=== PATIENT | female | born 1970 | race Caucasian/White ===

== ENCOUNTER 2023-03-06 07:25 | Outpatient (RCR) | payer BC, SELFPAY | END 2023-03-06 23:59 | disposition home or self-care (01) | LOC: RPT 07:25 | PROVIDERS: ATTENDING PHYSICIAN Radiology Radiation Oncology; FAMILY PHYSICIAN Internal Medicine | DX: I97.2 Postmastectomy lymphedema syndrome (principal); C50.412 Malignant neoplasm of upper-outer quadrant of left female breast; Z17.1 Estrogen receptor negative status [ER-]; Z73.6 Limitation of activities due to disability | CPT/HCPCS: 97110; 97140; 97162 ==

== ENCOUNTER 2023-04-03 09:02 | Outpatient (RCR) | payer BC, SELFPAY | END 2023-04-03 23:59 | disposition home or self-care (01) | LOC: RPT 09:02 | PROVIDERS: ATTENDING PHYSICIAN Radiology Radiation Oncology; FAMILY PHYSICIAN Internal Medicine | DX: I97.2 Postmastectomy lymphedema syndrome (principal); C50.412 Malignant neoplasm of upper-outer quadrant of left female breast; Z17.1 Estrogen receptor negative status [ER-]; Z73.6 Limitation of activities due to disability | CPT/HCPCS: 97110; 97112; 97140 ==

== ENCOUNTER 2023-05-03 11:05 | Outpatient (RCR) | payer BC, SELFPAY | END 2023-05-03 23:59 | disposition home or self-care (01) | LOC: RPT 11:05 | PROVIDERS: ATTENDING PHYSICIAN Radiology Radiation Oncology; FAMILY PHYSICIAN Internal Medicine | DX: I97.2 Postmastectomy lymphedema syndrome (principal); C50.412 Malignant neoplasm of upper-outer quadrant of left female breast; Z17.1 Estrogen receptor negative status [ER-]; Z73.6 Limitation of activities due to disability | CPT/HCPCS: 97110; 97140 ==

== ENCOUNTER 2023-05-29 09:03 | Outpatient (RCR) | payer BC, SELFPAY | END 2023-05-29 23:59 | disposition home or self-care (01) | LOC: RPT 09:03 | PROVIDERS: ATTENDING PHYSICIAN Radiology Radiation Oncology; FAMILY PHYSICIAN Internal Medicine | DX: I97.2 Postmastectomy lymphedema syndrome (principal); C50.412 Malignant neoplasm of upper-outer quadrant of left female breast; Z17.1 Estrogen receptor negative status [ER-]; Z73.6 Limitation of activities due to disability | CPT/HCPCS: 97110; 97140 ==

== ENCOUNTER 2023-06-26 09:03 | Outpatient (RCR) | payer BC, SELFPAY | END 2023-06-26 23:59 | disposition home or self-care (01) | LOC: RPT 09:03 | PROVIDERS: ATTENDING PHYSICIAN Radiology Radiation Oncology; FAMILY PHYSICIAN Internal Medicine | DX: I89.8 Other specified noninfective disorders of lymphatic vessels and lymph nodes (principal); C50.412 Malignant neoplasm of upper-outer quadrant of left female breast; Z73.6 Limitation of activities due to disability | CPT/HCPCS: 97110; 97112; 97140 ==

== ENCOUNTER 2023-07-10 09:17 | Outpatient (RCR) | payer BC, SELFPAY | END 2023-07-10 23:59 | disposition home or self-care (01) | LOC: RPT 09:17 | PROVIDERS: ATTENDING PHYSICIAN Radiology Radiation Oncology; FAMILY PHYSICIAN Internal Medicine | DX: I89.8 Other specified noninfective disorders of lymphatic vessels and lymph nodes (principal); Z73.6 Limitation of activities due to disability; C50.412 Malignant neoplasm of upper-outer quadrant of left female breast | CPT/HCPCS: 97110; 97112; 97140 ==

== ENCOUNTER 2024-12-30 06:38 | Outpatient (RCR) | payer BC, SELFPAY | END 2024-12-30 23:59 | disposition home or self-care (01) | LOC: RPT 06:38 | PROVIDERS: ATTENDING PHYSICIAN Radiology Radiation Oncology | DX: C50.412 Malignant neoplasm of upper-outer quadrant of left female breast (principal); Z73.6 Limitation of activities due to disability; L59.8 Other specified disorders of the skin and subcutaneous tissue related to radiation; Z17.1 Estrogen receptor negative status [ER-]; I89.8 Other specified noninfective disorders of lymphatic vessels and lymph nodes; R29.3 Abnormal posture; M62.81 Muscle weakness (generalized) | CPT/HCPCS: 97110; 97140; 97162 ==

== ENCOUNTER 2025-02-04 06:33 | Outpatient (RCR) | payer BC, SELFPAY | END 2025-02-04 23:59 | disposition home or self-care (01) | LOC: RPT 06:33 | PROVIDERS: ATTENDING PHYSICIAN Radiology Radiation Oncology | DX: C50.412 Malignant neoplasm of upper-outer quadrant of left female breast (principal); Z73.6 Limitation of activities due to disability; L59.8 Other specified disorders of the skin and subcutaneous tissue related to radiation; Z17.1 Estrogen receptor negative status [ER-]; I89.8 Other specified noninfective disorders of lymphatic vessels and lymph nodes; R29.3 Abnormal posture; M62.81 Muscle weakness (generalized) | CPT/HCPCS: 97110; 97140; 97530 ==